=== PATIENT | female | born 1965 | race Caucasian/White ===

== ENCOUNTER → 2016-08-10 | Outpatient (CLI) | payer BC ==
--- NOTE | 2016-08-10 13:52 | MY ---
EXAMINATION: Bilateral digital mammography utilizing CAD. HISTORY: Screening exam. Comparison is made to previous studies dated 06/04/2015, 09/21/2013, 3. FINDINGS: Bilateral heterogeneously dense breast tissue. There is a single view asymmetry within t he slightly outer left breast. Otherwise, no suspicious calcifications, masses or architectural dis tortions. No pathologic appearing lymph nodes, no abnormal skin thickening or nipple inversion. O ther CAD highlighted regions appear normal at this time. IMPRESSION: BI-RADS category 0 - Incomplete study. Left breast diagnostic is needed for further ev aluation. THE FALSE-NEGATIVE RATE OF MAMMOGRAM IS APPROXIMATELY 10%. MANAGEMENT OF A PALPABLE ABNORMALITY MUST BE BASED UPON CLINICAL GROUNDS. SENSITIVITY FOR DETECTION OF ABNORMALITIES IN DENSE BREASTS IS LOW. NOTE: A letter will be sent to the patient regarding findings. [facility] -- [facility] [phone] - FAX [phone]
== END ==
LOC: MW.MAM 09:09
PROVIDERS: ATTEND Obstetrics & Gynecology
DX: Z12.31 Encounter for screening mammogram for malignant neoplasm of breast (principal)
CPT/HCPCS: G0202; G0202-26